=== PATIENT | female | born 1960 | race Caucasian/White ===

== ENCOUNTER 2019-04-20 12:02 | Emergency (ER) | payer MEDICAID ==
[~2019-04-20] VITALS: Ht 157.5 cm; Wt 71.2 kg
[2019-04-20 12:22] VITALS: Ht 157.5 cm; Wt 71.2 kg
[2019-04-20 20:47] VITALS: BP 130/72
== END 2019-04-20 20:47 | disposition home or self-care (01) ==
LOC: ED 12:02
DX: S05.12XA Contusion of eyeball and orbital tissues, left eye, initial encounter (principal); S05.11XA Contusion of eyeball and orbital tissues, right eye, initial encounter; W10.9XXA Fall (on) (from) unspecified stairs and steps, initial encounter; Y93.89 Activity, other specified; Y92.89 Other specified places as the place of occurrence of the external cause; Y99.8 Other external cause status

== ENCOUNTER → 2019-04-24 | Outpatient (CLI) | payer MEDICAID | END | disposition home or self-care (01) | LOC: CT 12:09 | PROC: BW28ZZZ Computerized Tomography (CT Scan) of Head (ICD-10-PCS; principal; 2019-04-24) | DX: S06.0X9A Concussion with loss of consciousness of unspecified duration, initial encounter (principal); R42 Dizziness and giddiness; W19.XXXA Unspecified fall, initial encounter; Y92.9 Unspecified place or not applicable ==

== ENCOUNTER 2019-09-17 03:24 | Emergency (ER) | payer OTHER ==
[~2019-09-17] VITALS: Ht 154.9 cm; Wt 70.8 kg
[2019-09-17 03:29] VITALS: Ht 154.9 cm; Wt 70.8 kg
[2019-09-17 05:22] VITALS: BP 118/67
== END 2019-09-17 05:22 | disposition home or self-care (01) ==
LOC: ED 03:24
DX: S00.83XA Contusion of other part of head, initial encounter (principal); Y04.8XXA Assault by other bodily force, initial encounter; Y93.89 Activity, other specified; Y92.89 Other specified places as the place of occurrence of the external cause; Y99.8 Other external cause status